=== PATIENT | female | born 1995 | race Caucasian/White ===

== ENCOUNTER 2019-01-22 09:51 | Emergency (ER) | payer MEDICAID ==
[~2019-01-22] VITALS: Ht 157.5 cm; Wt 55.8 kg
[2019-01-22 10:02] VITALS: Ht 157.5 cm; Wt 55.8 kg
[2019-01-22 10:59] LABS: BASOPHIL % 0.3 % (0-2); PLATELET COUNT 333 x10^3mcL (130-400)
[2019-01-22 12:09] VITALS: BP 109/64
[2019-01-22 13:17] LABS: microscopic required? YES; urine erythrocyte 3+ (NEGATIVE)
== END 2019-01-22 12:42 | disposition home or self-care (01) ==
LOC: ED 09:51
PROVIDERS: Emergency Medicine
DX: O03.9 Complete or unspecified spontaneous abortion without complication (principal)
CPT/HCPCS: 36415